=== PATIENT | male | born 1980 | race Hispanic/Latino ===

== ENCOUNTER 2021-05-07 05:45 | Inpatient (IN) | payer BC ==
[2021-05-04 10:13] LABS: BASOPHILS # (AUTO) 0.1 (0.0-0.1); EOSINOPHILS # (AUTO) 0.2 (0.0-0.4); EOSINOPHILS % 3.5 % (0.0-6.0); HEMOGLOBIN 15.8 g/dL (14.0-18.0); LYMPHOCYTES # (AUTO) 1.8 (1.0-3.2); LYMPHOCYTES % 26.3 % (18.0-39.1); MEAN CORPUSCULAR HGB CONC 32.2 g/dL (31-35); MEAN CORPUSCULAR VOLUME 90.1 fL (81-99); MONOCYTES # (AUTO) 0.8 (0.2-0.8); NEUTROPHILS # (AUTO) 3.8 (2.1-6.9); NEUTROPHILS % 56.5 % (38.7-80.0); PLATELET COUNT 252 x10e3/uL (140-360); RED BLOOD COUNT 5.44 x10e6/uL (4.3-5.7); RED CELL DISTRIBUTION WIDTH 12.7 % (11.7-14.4)
[2021-05-04 10:22] LABS: ANION GAP 8.8 mmol/L (8-16); CALCIUM 9.7 mg/dL (8.4-10.2); CREATININE, SERUM 0.84 mg/dL (0.72-1.25); POTASSIUM 3.8 mmol/L (3.5-5.1)
[~2021-05-07] VITALS: Ht 175.3 cm; Wt 115.7 kg
[~2021-05-07 05:45] MED LIST: ALLEGRA ALLERGY60 MG PO; AVAPRO300 MG PO; HYDROCHLOROTHIA50 MG PO; MULTI-VITAMIN1 EACH PO; [UNRECOGNIZED DRUG - OTHER] INH
[2021-05-07] MEDS ORDERED: SODIUM CHLORIDE 0.9% 50ML 50 ML ONE ×2 (06:09→06:25)
[2021-05-07] MEDS ORDERED: BUPIVACAINE 0.25% 30ML SDV ONE (07:07)
[2021-05-07] MEDS ORDERED: FENTANYL CITRATE/PF 100MCG/2 ML INJ ONE ×2 (10:20→13:16)
[2021-05-07] MEDS ORDERED: HYDROMORPHONE 1MG/1ML INJ ONE (10:53)
[2021-05-07 11:23] VITALS: BP 135/84
[2021-05-07 11:29] VITALS: BP 135/84
[2021-05-07] MEDS: HYDROCODONE/APAP 7.5MG-325MG 1 EA TAB PO PRN ×2 (12:24→17:00)
[2021-05-07] MEDS: LACTATED RINGER'S 1,000 ML INJ SCH ×2 (12:24→20:33)
[2021-05-07] MEDS ORDERED: NEOSTIGMINE 1 MG/ML 10ML VIAL ONE (13:04)
[2021-05-07] MEDS ORDERED: EPHEDRINE SULFATE INJ 50 MG/ML VIAL ONE (13:04)
[2021-05-07] MEDS ORDERED: SEVOFLURANE INHAL SOLN 250 ML PEN BTL ONE (13:04)
[2021-05-07] MEDS ORDERED: LIDOCAINE HCL 2% LOCAL INJ 5 ML SDV VIAL INJ ONE (13:04)
[2021-05-07] MEDS ORDERED: DEXAMETHASONE SOD PHOS INJ 4 MG/ML SDV ONE (13:04)
[2021-05-07] MEDS ORDERED: GLYCOPYRROLATE INJ 0.2 MG/ML VIAL ONE (13:04)
[2021-05-07] MEDS ORDERED: POVIDONE IODINE 0.05% 0.05 % ML PO ONE (13:04)
[2021-05-07] MEDS ORDERED: ONDANSETRON HCL INJ 2MG/ML 2ML 2 MG/ML VIAL ONE (13:04)
[2021-05-07] MEDS ORDERED: PHENYLEPHRINE HCL 1% 10 MG/ML VIAL ONE (13:04)
[2021-05-07] MEDS ORDERED: PROPOFOL IV EMULSION 10 MG/ML 20 ML VIAL ONE (13:04)
[2021-05-07] MEDS ORDERED: ROCURONIUM BROMIDE 10 MG/ML 5ML VIAL IV ONE (13:04)
[2021-05-07] MEDS ORDERED: MIDAZOLAM HCL 2 MG/2 ML VIAL ONE (13:16)
[2021-05-07] MEDS ORDERED: KETAMINE HCL INJ 50 MG/ML 10 ML VIAL ONE (13:16)
[2021-05-07] MEDS ORDERED: SIMETHICONE 80 MG CHEW PO PRN (13:30)
[2021-05-07 15:42] VITALS: BP 152/82
[2021-05-07] MEDS: ONDANSETRON HCL INJ 2MG/ML 2ML 2 MG/ML VIAL IV PRN ×2 (16:48→20:38)
[2021-05-07] MEDS: Morphine 2mg Syringe 2 MG/ML SYR IV PRN ×3 (16:48→22:51)
[2021-05-07] MEDS: ENOXAPARIN SOD INJ 40 MG/0.4 ML SYR SC SCH (20:39)
[2021-05-07 22:08] VITALS: BP 145/95
[2021-05-08 00:52] VITALS: BP 146/83
[2021-05-08] MEDS: Morphine 2mg Syringe 2 MG/ML SYR IV PRN (01:08)
[2021-05-08] MEDS: ONDANSETRON HCL INJ 2MG/ML 2ML 2 MG/ML VIAL IV PRN (03:38)
[2021-05-08] MEDS: HYDROCODONE/APAP 7.5MG-325MG 1 EA TAB PO PRN ×2 (04:35→08:30)
[2021-05-08] MEDS: LACTATED RINGER'S 1,000 ML INJ SCH (04:40)
[2021-05-08 05:05] LABS: BASOPHILS % 0.3 % (0.0-1.0); EOSINOPHILS % 0.3 % (0.0-6.0); HEMATOCRIT 45.2 % (38.2-49.6); HEMOGLOBIN 14.8 g/dL (14.0-18.0); LYMPHOCYTES % 14.9 % (18.0-39.1); MEAN CORPUSCULAR HEMOGLOBIN 29.3 pg (28-32); MEAN CORPUSCULAR HGB CONC 32.7 g/dL (31-35); MEAN CORPUSCULAR VOLUME 89.5 fL (81-99); MONOCYTES # (AUTO) 1.5 (0.2-0.8); NEUTROPHILS # (AUTO) 9.9 (2.1-6.9); NEUTROPHILS % 72.5 % (38.7-80.0); PLATELET COUNT 235 x10e3/uL (140-360); RED BLOOD COUNT 5.05 x10e6/uL (4.3-5.7); RED CELL DISTRIBUTION WIDTH 12.8 % (11.7-14.4)
[2021-05-08 05:06] VITALS: BP 144/93
[2021-05-08 05:24] LABS: ALBUMIN 3.8 g/dL (3.5-5.0); ANION GAP 15.4 mmol/L (8-16); CALCIUM 8.7 mg/dL (8.4-10.2); CREATININE, SERUM 0.92 mg/dL (0.72-1.25); POTASSIUM 4.4 mmol/L (3.5-5.1)
[2021-05-08 05:54] LABS: MAGNESIUM 2.3 MG/DL (1.3-2.1); PHOSPHORUS 3.7 MG/DL (2.3-4.7)
[2021-05-08 07:30] VITALS: BP 139/92
[2021-05-08] MEDS: ENOXAPARIN SOD INJ 40 MG/0.4 ML SYR SC SCH (08:02)
[2021-05-08] MEDS ORDERED: IRBESARTAN 150 MG TAB PO SCH (09:00)
== END 2021-05-08 09:18 | disposition home or self-care (01) | DRG 621 ==
LOC: OR 05:45 → INTOOBSV 10:23 → PACU V 10:23 → OBSVTOIN 10:23 → MED/SURG 11:01
PROVIDERS: ADMIT Internal Medicine; ATTEND Internal Medicine
PROC: 0D164ZA Bypass Stomach to Jejunum, Percutaneous Endoscopic Approach (ICD-10-PCS; principal; 2021-05-07 07:00)
PROC: 0BQT4ZZ Repair Diaphragm, Percutaneous Endoscopic Approach (ICD-10-PCS; 2021-05-07 07:00)
DX: E66.01 Morbid (severe) obesity due to excess calories (principal); K44.9 Diaphragmatic hernia without obstruction or gangrene; Z68.39 Body mass index [BMI] 39.0-39.9, adult; G47.33 Obstructive sleep apnea (adult) (pediatric); Z20.822 Contact with and (suspected) exposure to COVID-19; I10 Essential (primary) hypertension; K21.9 Gastro-esophageal reflux disease without esophagitis; I11.9 Hypertensive heart disease without heart failure; K76.0 Fatty (change of) liver, not elsewhere classified
CPT/HCPCS: 36415; 43235; 80048; 80053; 83735; 84100; 85025; 93005; 94799; 96360; J0690; J1100; J1170; J1650; J2001; J2250; J2270; J2370; J2405; J2710; J3010; J7121; U0002